=== PATIENT | female | born 1935 | race Caucasian/White ===

== ENCOUNTER 2016-06-16 08:08 | Day surgery (SDC) | payer MEDICARE, BC ==
[2016-06-16] MEDS ORDERED: Sodium Chloride 0.9% 10 ML Syringe FLUSH PRN (08:30)
[2016-06-16] MEDS ORDERED: Propofol 200 MG/20 ML SDV IV ONE (10:45)
[2016-06-16 12:23] VITALS: BP 178/84
--- NOTE | 2016-06-17 08:50 | OR ---
DATE OF OPERATION: 06/16/2016 SURGEON: Maurilio Shankar MD PREOPERATIVE DIAGNOSIS: Cataract left eye. POSTOPERATIVE DIAGNOSIS: Cataract left eye. OPERATION PERFORMED: Phacoemulsification of cataract left eye with placement of an Garzon, model ZCB00, 23.0 diopter, foldable, posterior chamber intraocular lens. GEOSPATIAL APPLICATIONS DEVELOPER: None. DESCRIPTION OF PROCEDURE: Peribulbar anesthetic was performed using a mixture of 2% lidocaine with Wydase. The patient was prepped and draped in the usual fashion. A 3 mm fornix based conjunctival flap was performed at the 10 o'clock position. Hemostasis was obtained using diathermy, and a 2.8 mm grooved near clear corneal incision was then made. A stab incision was made into the anterior chamber at the 12 o'clock position and a second stab wound incision was made underlying the grooved near clear corneal incision. Viscoat was instilled into the anterior chamber, and a continuous tear capsulotomy was performed. Hydrodissection was accomplished with balanced salt solution, and the nucleus was removed in a divide and conquer fashion. The remaining cortical material was removed with the irrigation and aspiration unit. Viscoat was instilled into the anterior chamber, and an GULSHAN, model ZCB00, 23.0 diopter, foldable, posterior chamber intraocular lens was placed into the capsular bag, the haptics being positioned at the 1 and 7 o'clock positions. The residual Viscoat was removed from the anterior chamber and the anterior chamber reformed with balanced salt solution. The wound was checked and noted to be watertight. The conjunctiva was secured in its original position with diathermy. Alphagan and Maxitrol Ointment were then placed into the patient's eye. The patient tolerated the procedure well and it was without complication. Elapsed phacoemulsification time was 24 seconds. Postoperative instructions as related to activities as well as medications were reviewed with the patient. Keturah was instructed to return to see me on the day following surgery for the first postoperative check. Keturah was also instructed to contact me prior to that time if she were to have any problems. /[id number] DEG/MODL CC: JANET SARKAR MD [facility]
== END 2016-06-16 12:14 | disposition home or self-care (01) ==
LOC: FB.SDS 08:08
PROVIDERS: ATTEND Ophthalmology
DX: H26.9 Unspecified cataract (principal); F41.1 Generalized anxiety disorder; F32.9 Major depressive disorder, single episode, unspecified; Z90.49 Acquired absence of other specified parts of digestive tract; Z90.710 Acquired absence of both cervix and uterus; Z98.890 Other specified postprocedural states; Z79.899 Other long term (current) drug therapy; Z88.8 Allergy status to other drugs, medicaments and biological substances
CPT/HCPCS: 00142; 66984; A4217; C1780; J2704; J7050

== ENCOUNTER 2016-07-14 08:42 | Day surgery (SDC) | payer MEDICARE, BC ==
[2016-07-14] MEDS ORDERED: Sodium Chloride 0.9% 10 ML Syringe FLUSH PRN (10:04)
[2016-07-14] MEDS ORDERED: Propofol 200 MG/20 ML SDV IV ONE (11:35)
[2016-07-14] MEDS ORDERED: Labetalol 100 MG/20 ML MDV IV ONE (11:35)
[2016-07-14 13:32] VITALS: BP 134/70
--- NOTE | 2016-07-14 18:16 | OR ---
DATE OF OPERATION: 07/14/2016 SURGEON: Maurilio Shankar MD PREOPERATIVE DIAGNOSIS: Cataract right eye. POSTOPERATIVE DIAGNOSIS: Cataract right eye. OPERATION PERFORMED: Phacoemulsification of cataract right eye with placement of an Garzon, model ZCB00, 22.5 diopter, foldable, posterior chamber intraocular lens. MUSIC ASSISTANT: None. DESCRIPTION OF PROCEDURE: Peribulbar anesthetic was performed using a mixture of 2% lidocaine with Wydase. The patient was prepped and draped in the usual fashion. A 3 mm fornix based conjunctival flap was performed at the 10 o'clock position. Hemostasis was obtained using diathermy, and a 2.8 mm grooved near clear corneal incision was then made. A stab incision was made into the anterior chamber at the 12 o'clock position and a second stab wound incision was made underlying the grooved near clear corneal incision. Viscoat was instilled into the anterior chamber, and a continuous tear capsulotomy was performed. Hydrodissection was accomplished with balanced salt solution, and the nucleus was removed in a divide and conquer fashion. The remaining cortical material was removed with the irrigation and aspiration unit. Viscoat was instilled into the anterior chamber, and an Garzon, model ZCB00, 22.5 diopter, foldable, posterior chamber intraocular lens was placed into the capsular bag, the haptics being positioned at the 1 and 7 o'clock positions. The residual Viscoat was removed from the anterior chamber and the anterior chamber reformed with balanced salt solution. The wound was checked and noted to be watertight. The conjunctiva was secured in its original position with diathermy. Alphagan and Maxitrol Ointment were then placed into the patient's eye. The patient tolerated the procedure well and it was without complication. Elapsed phacoemulsification time was 26.6 seconds. Postoperative instructions as related to activities as well as medications were reviewed with the patient. The patient was instructed to return to see me on the day following surgery for the first postoperative check. The patient was also instructed to contact me prior to that time if she were to have any problems. /[id number] DEG/MODL CC: MD Marlene De La Fuente OD MTDD
== END 2016-07-14 12:51 | disposition home or self-care (01) ==
LOC: FB.SDS 08:42
PROVIDERS: ATTEND Ophthalmology
DX: H26.9 Unspecified cataract (principal); F41.1 Generalized anxiety disorder; F32.9 Major depressive disorder, single episode, unspecified; Z88.8 Allergy status to other drugs, medicaments and biological substances; Z90.49 Acquired absence of other specified parts of digestive tract; Z98.890 Other specified postprocedural states; Z90.710 Acquired absence of both cervix and uterus
CPT/HCPCS: 00142; 66984; A4217; C1780; J2704; J7050

== ENCOUNTER 2023-05-15 14:01 | Inpatient (IN) | payer MEDICARE, BC ==
[2023-05-15] MEDS ORDERED: Sodium Chloride 0.9% 10 ML Syringe FLUSH PRN (14:11)
[2023-05-15] MEDS: Sodium Chloride 0.9% 1,000 ML IV SCH ×2 (14:17→16:31)
[2023-05-15] MEDS: Ondansetron 4 MG/2 ML SDV IVPUSH ONE (14:17)
[2023-05-15] MEDS: Meclizine 25 MG Tab PO ONE ×2 (14:51→15:08)
[2023-05-15 14:52] LABS: BASOPHILS PERCENT AUTO 0.2 % (0.2-1.5); EOSINOPHILS PERCENT AUTO 0.1 % (0.6-8.1); HEMATOCRIT 37.2 % (34.2-48.2); HEMOGLOBIN 12.8 g/dL (11.4-15.5); LYMPHOCYTES ABSOLUTE AUTO 0.3 x10-3/uL (1.0-4.4); LYMPHOCYTES PERCENT AUTO 4.7 % (18.4-52.1); MEAN CORPUSCULAR HEMOGLOBIN 29.7 pg (23.9-33.9); MEAN CORPUSCULAR HGB CONC 34.3 g/dL (31.9-34.8); MEAN CORPUSCULAR VOLUME 86.6 fL (76.7-100.5); MEAN PLATELET VOLUME 8.9 fL (7.1-12.4); MONOCYTES ABSOLUTE AUTO 0.7 x10-3/uL (0.3-1.0); MONOCYTES PERCENT AUTO 10.1 % (4.4-15.7); NEUTROPHILS PERCENT AUTO 84.9 % (30.8-76.2); PLATELET COUNT,PLT 148 x10(3)uL (151-488); RED BLOOD CELL COUNT 4.29 x10(6)uL (3.60-5.20); RED CELL DISTRIBUTION WIDTH 13.6 % (12.3-16.5); WHITE BLOOD CELL COUNT,WBC 7.1 x10-3/uL (3.0-10.3)
[2023-05-15 14:56] LABS: BLOOD UREA NITROGEN,BUN 13 mg/dL (7-18); CALCIUM 8.4 mg/dL (8.6-10.2); CARBON DIOXIDE,CO2 27 mmol/L (21-32); CHLORIDE,CL 102 mmol/L (100-110); EST CRCL DRUG DOSING (CG) 31.35 mL/min; ESTIMATED GFR 55 mL/min (>60); GLUCOSE RANDOM 123 mg/dL (80-116); POTASSIUM,K 3.6 mmol/L (3.5-5.3); SODIUM,NA 137 mmol/L (135-145)
[2023-05-15 15:02] LABS: ALANINE AMINOTRANSFERASE,ALT 23 U/L (12-36); ALBUMIN 3.4 g/dL (3.2-4.6); ALKALINE PHOSPHATASE 51 IU/L (56-112); ASPARTATE AMNIOTRANSFERASE,AST 21 IU/L (5-25); BILIRUBIN TOTAL 0.5 mg/dL (0.1-1.3); PROTEIN TOTAL,TP 6.9 g/dL (6.0-8.0)
[2023-05-15 15:05] LABS: LACTIC ACID 1.1 mmol/L (0.4-2.0)
[2023-05-15] MEDS: Acetaminophen 500 MG Tab PO ONE (15:08)
[2023-05-15 15:26] LABS: INFLUENZA A NAA POSITIVE (NEGATIVE); INFLUENZA B NAA NEGATIVE (NEGATIVE); RESPIRATORY SYNCYTIAL VIR NAA NEGATIVE (NEGATIVE)
[2023-05-15 15:27] LABS: CORONAVIRUS COVID-19 NAA NEGATIVE (NEGATIVE)
[2023-05-15 15:36] LABS: BILIRUBIN,URINE NEGATIVE (NEGATIVE); GLUCOSE,URINE NORMAL (NORMAL); KETONES,URINE 15 mg/dL (NEGATIVE); LEUKOCYTE ESTERASE,URINE NEGATIVE (NEGATIVE); NITRITE,URINE POSITIVE (NEGATIVE); OCCULT BLOOD,URINE NEGATIVE (NEGATIVE); PROTEIN,URINE NEGATIVE (NEGATIVE); UROBILINOGEN,URINE NORMAL (NEGATIVE)
[2023-05-15 15:40] LABS: APPEARANCE,URINE SLIGHTLY CLOUDY (CLEAR); BACTERIA,URINE MANY (NS); COLOR,URINE YELLOW (YELLOW); MUCUS,URINE FEW (NS); RBC,URINE 0-5 (0-5); SQUAMOUS EPITHELIAL CELLS,UR FEW (NS,R,O)
[2023-05-15] MEDS: cefTRIAXone 1 GM Vial IVPUSH SCH (16:16)
[2023-05-15] MEDS: Enoxaparin 40 MG/0.4 ML Syringe SUBCUT SCH ×2 (19:32→21:58)
[2023-05-15] MEDS ORDERED: Oseltamivir 75 MG Cap PO SCH (21:00)
[2023-05-15] MEDS: Simvastatin 40 MG Tab PO SCH (21:57)
[2023-05-15] MEDS: Oseltamivir 75 MG Cap PO ONE (21:57)
[2023-05-15] MEDS: Latanoprost 0.005% Ophth Soln 2.5 ML Bottle EYEBOTH SCH (21:58)
[2023-05-16] MEDS: Acetaminophen 325 MG Tab PO PRN (05:23)
[2023-05-16 07:19] LABS: BASOPHILS PERCENT AUTO 0.1 % (0.2-1.5); EOSINOPHILS PERCENT AUTO 0.1 % (0.6-8.1); HEMATOCRIT 33.6 % (34.2-48.2); HEMOGLOBIN 11.4 g/dL (11.4-15.5); LYMPHOCYTES ABSOLUTE AUTO 0.6 x10-3/uL (1.0-4.4); LYMPHOCYTES PERCENT AUTO 12.5 % (18.4-52.1); MEAN CORPUSCULAR HEMOGLOBIN 29.5 pg (23.9-33.9); MEAN CORPUSCULAR HGB CONC 33.9 g/dL (31.9-34.8); MEAN CORPUSCULAR VOLUME 87.1 fL (76.7-100.5); MEAN PLATELET VOLUME 9.3 fL (7.1-12.4); MONOCYTES ABSOLUTE AUTO 0.6 x10-3/uL (0.3-1.0); MONOCYTES PERCENT AUTO 12.6 % (4.4-15.7); NEUTROPHILS ABSOLUTE AUTO 3.8 x10-3/uL (1.5-6.3); NEUTROPHILS PERCENT AUTO 74.7 % (30.8-76.2); PLATELET COUNT,PLT 129 x10(3)uL (151-488); RED BLOOD CELL COUNT 3.85 x10(6)uL (3.60-5.20); RED CELL DISTRIBUTION WIDTH 13.4 % (12.3-16.5)
[2023-05-16 07:31] LABS: A/G RATIO 0.9; ALANINE AMINOTRANSFERASE,ALT 23 U/L (12-36); ALBUMIN 2.8 g/dL (3.2-4.6); ALKALINE PHOSPHATASE 42 IU/L (56-112); ASPARTATE AMNIOTRANSFERASE,AST 21 IU/L (5-25); BILIRUBIN TOTAL 0.3 mg/dL (0.1-1.3); BLOOD UREA NITROGEN,BUN 13 mg/dL (7-18); CALCIUM 7.8 mg/dL (8.6-10.2); CARBON DIOXIDE,CO2 25 mmol/L (21-32); CHLORIDE,CL 105 mmol/L (100-110); EST CRCL DRUG DOSING (CG) 31.35 mL/min; ESTIMATED GFR 55 mL/min (>60); GLUCOSE RANDOM 105 mg/dL (80-116); POTASSIUM,K 3.4 mmol/L (3.5-5.3); SODIUM,NA 138 mmol/L (135-145)
[2023-05-16] MEDS ORDERED: CYANOCOBALAMIN PO SCH (09:00)
[2023-05-16] MEDS ORDERED: [UNRECOGNIZED DRUG - OTHER] PO SCH (09:00)
[2023-05-16] MEDS ORDERED: FOLIC ACID PO SCH (09:00)
[2023-05-16] MEDS: Oseltamivir 30 MG Cap PO SCH (09:30)
[2023-05-16] MEDS: amLODIPine 5 MG Tab PO SCH (09:30)
[2023-05-16] MEDS: Sertraline 50 MG Tab PO SCH (09:30)
[2023-05-16] MEDS: Calcium Carbonate 500 MG Tab.Chew PO SCH (09:30)
[2023-05-16] MEDS: Potassium Chloride 20 MEQ Tab.ER PO SCH (09:30)
[2023-05-16] MEDS: Ondansetron 4 MG/2 ML SDV IV PRN (11:56)
[2023-05-16] MEDS: Dorzolamide/Timolol 2%-0.5% Ophth Soln 10 ML Bottle EYEBOTH SCH (12:22)
[2023-05-16] MEDS ORDERED: Ibuprofen 400 MG Tab PO PRN (13:52)
[2023-05-17] MEDS: Sennosides/Docusate Sodium 50-8.6 MG Tab PO PRN (00:57)
[2023-05-17 06:57] LABS: BLOOD UREA NITROGEN,BUN 8 mg/dL (7-18); CALCIUM 8.1 mg/dL (8.6-10.2); CARBON DIOXIDE,CO2 27 mmol/L (21-32); CHLORIDE,CL 105 mmol/L (100-110); CREATININE 0.8 mg/dL (0.55-1.02); EST CRCL DRUG DOSING (CG) 39.18 mL/min; ESTIMATED GFR 71 mL/min (>60); GLUCOSE RANDOM 101 mg/dL (80-116); POTASSIUM,K 3.4 mmol/L (3.5-5.3); SODIUM,NA 139 mmol/L (135-145)
[2023-05-18] MEDS: Ciprofloxacin 250 MG Tab PO SCH (11:30)
[2023-05-19 09:29] VITALS: BP 155/68
[2023-05-19 14:47] VITALS: PULSE 65
== END 2023-05-19 12:25 | disposition home or self-care (01) | DRG 194 ==
LOC: FB.ED 14:01 → FB.MS 16:12
PROVIDERS: ADMIT Emergency Medicine; ATTEND Family Medicine
DX: R53.1 Weakness (principal); J10.1 Influenza due to other identified influenza virus with other respiratory manifestations; N39.0 Urinary tract infection, site not specified; E86.0 Dehydration; E78.5 Hyperlipidemia, unspecified; K52.9 Noninfective gastroenteritis and colitis, unspecified; Z66 Do not resuscitate; K59.09 Other constipation; E78.00 Pure hypercholesterolemia, unspecified; Z79.899 Other long term (current) drug therapy; Z79.82 Long term (current) use of aspirin; I12.9 Hypertensive chronic kidney disease with stage 1 through stage 4 chronic kidney disease, or unspecified chronic kidney disease; N18.9 Chronic kidney disease, unspecified; F32.A Depression, unspecified; B96.20 Unspecified Escherichia coli [E. coli] as the cause of diseases classified elsewhere; E87.6 Hypokalemia; Z88.6 Allergy status to analgesic agent; Z98.49 Cataract extraction status, unspecified eye; Z90.710 Acquired absence of both cervix and uterus; Z90.49 Acquired absence of other specified parts of digestive tract; Z98.890 Other specified postprocedural states
CPT/HCPCS: 0241U; 36415; 71045; 71046; 80048; 80053; 81001; 82150; 83605; 83690; 85025; 87040; 87086; 87088; 87186; 93005; 94150; 96361; 96374; 97161-GP; 97165-GO; 97530-GO; 97530-GP; 97535-GO; 99285; 99285-25; A9270-GY; J0696; J1650; J2405; J7030

== ENCOUNTER 2024-03-22 09:52 | Emergency (ER) | payer MEDICARE, BC ==
[2024-03-22] MEDS: traMADol 50 MG Tab PO STA (10:17)
[2024-03-22 11:22] VITALS: BP 151/73; PULSE 64
== END 2024-03-22 11:20 | disposition home or self-care (01) ==
LOC: FB.ED 09:52
DX: S39.012A Strain of muscle, fascia and tendon of lower back, initial encounter (principal); M51.360 Other intervertebral disc degeneration, lumbar region with discogenic back pain only; I10 Essential (primary) hypertension; E78.00 Pure hypercholesterolemia, unspecified; Z90.49 Acquired absence of other specified parts of digestive tract; Z90.710 Acquired absence of both cervix and uterus; Z88.6 Allergy status to analgesic agent; Z79.899 Other long term (current) drug therapy; W00.0XXA Fall on same level due to ice and snow, initial encounter
CPT/HCPCS: 72100; 73521; 99283; A9270; 73522

== ENCOUNTER 2024-08-28 06:58 | Emergency (ER) | payer MEDICARE, BC ==
[2024-08-28 07:17] VITALS: BP 129/127; PULSE 70
[2024-08-28 07:54] LABS: BASOPHILS ABSOLUTE AUTO 0.0 x10-3/uL (0.0-0.1); BASOPHILS PERCENT AUTO 0.3 % (0.2-1.5); EOSINOPHILS ABSOLUTE AUTO 0.1 x10-3/uL (0.0-0.8); EOSINOPHILS PERCENT AUTO 1.2 % (0.6-8.1); LYMPHOCYTES ABSOLUTE AUTO 1.5 x10-3/uL (1.0-4.4); LYMPHOCYTES PERCENT AUTO 18.0 % (18.4-52.1); MEAN PLATELET VOLUME 9.7 fL (7.1-12.4); MONOCYTES ABSOLUTE AUTO 0.8 x10-3/uL (0.3-1.0); MONOCYTES PERCENT AUTO 9.4 % (4.4-15.7); NEUTROPHILS ABSOLUTE AUTO 5.7 x10-3/uL (1.5-6.3); NEUTROPHILS PERCENT AUTO 71.1 % (30.8-76.2); PLATELET COUNT,PLT 205 x10(3)uL (151-488); RED BLOOD CELL COUNT 4.69 x10(6)uL (3.60-5.20); RED CELL DISTRIBUTION WIDTH 13.1 % (12.3-16.5); WHITE BLOOD CELL COUNT,WBC 8.1 x10-3/uL (3.0-10.3)
[2024-08-28 07:55] LABS: BLOOD UREA NITROGEN,BUN 20 mg/dL (7-18); CARBON DIOXIDE,CO2 29 mmol/L (21-32); CHLORIDE,CL 104 mmol/L (100-110); CREATININE 1.2 mg/dL (0.55-1.02); EST CRCL DRUG DOSING (CG) 25.63 mL/min; ESTIMATED GFR 44 mL/min (>60); GLUCOSE RANDOM 106 mg/dL (80-116); POTASSIUM,K 4.2 mmol/L (3.5-5.3); SODIUM,NA 140 mmol/L (135-145)
[2024-08-28 08:01] LABS: A/G RATIO 1.2; ALANINE AMINOTRANSFERASE,ALT 17 U/L (12-36); ASPARTATE AMNIOTRANSFERASE,AST 11 IU/L (5-25); BILIRUBIN TOTAL 0.5 mg/dL (0.1-1.3); PROTEIN TOTAL,TP 6.8 g/dL (6.0-8.0)
== END 2024-08-28 09:20 | disposition home or self-care (01) ==
LOC: FB.ED 06:58
DX: R07.89 Other chest pain (principal); I10 Essential (primary) hypertension; E78.00 Pure hypercholesterolemia, unspecified; Z88.0 Allergy status to penicillin; Z79.899 Other long term (current) drug therapy; Z90.49 Acquired absence of other specified parts of digestive tract; Z90.710 Acquired absence of both cervix and uterus
CPT/HCPCS: 36415; 71045; 80053; 84484; 85025; 85379; 86140; 93005; 99285